=== PATIENT | male | born 1985 | race American Indian/Alaskan Native ===

== ENCOUNTER 2020-07-12 21:37 | Emergency (ER) | payer OTHER ==
[~2020-07-12] VITALS: Ht 175.3 cm; Wt 86.2 kg
[2020-07-12] MEDS ORDERED: PENICILLIN V P500 MG PO (21:56)
== END 2020-07-12 22:08 | disposition home or self-care (01) ==
LOC: ED 21:37
DX: K04.7 Periapical abscess without sinus (principal); F17.200 Nicotine dependence, unspecified, uncomplicated
CPT/HCPCS: 99282

== ENCOUNTER 2021-01-22 15:18 | Emergency (ER) | payer OTHER ==
[~2021-01-22] VITALS: Ht 175.3 cm; Wt 86.2 kg
[~2021-01-22 15:18] MED LIST: PENICILLIN V P500 MG PO
[2021-01-22] MEDS ORDERED: CEPHALEXIN500 M1 PO (16:32)
== END 2021-01-22 16:38 | disposition home or self-care (01) ==
LOC: ED 15:18
DX: S91.012A Laceration without foreign body, left ankle, initial encounter (principal); W22.8XXA Striking against or struck by other objects, initial encounter; F17.200 Nicotine dependence, unspecified, uncomplicated
CPT/HCPCS: 12002; 99282-25

== ENCOUNTER 2023-04-23 11:41 | Emergency (ER) | payer OTHER ==
[~2023-04-23] VITALS: Ht 175.3 cm; Wt 75.2 kg
[~2023-04-23 11:41] MED LIST changes: +CEPHALEXIN500 M1 PO
[2023-04-23] MEDS ORDERED: NAPROSYN500 MG PO (13:09)
[2023-04-23] MEDS ORDERED: CEPHALEXIN500 M1 PO (13:09)
[2023-04-23 13:39] VITALS: BP 145/97
== END 2023-04-23 13:40 | disposition home or self-care (01) ==
LOC: ED 11:41
DX: S43.401A Unspecified sprain of right shoulder joint, initial encounter (principal); F17.200 Nicotine dependence, unspecified, uncomplicated; V00.131A Fall from skateboard, initial encounter
CPT/HCPCS: 73030; 99283 25; A9270